=== PATIENT | male | born 1990 | race Caucasian/White ===

== ENCOUNTER 2016-08-04 22:36 | Emergency (ER) | payer OTHER ==
[~2016-08-04] VITALS: Ht 170.2 cm; Wt 63.8 kg
[2016-08-04 22:40] VITALS: TEMP 37.5; Ht 170.2 cm; Wt 63.8 kg
[2016-08-05] MEDS ORDERED: PROPARACAINE HCL 0.5% OP SOLN 15 ML BTL OP STA (00:01)
[2016-08-05] MEDS ORDERED: CIPROFLOXACIN HCL 0.3% OP SOLN 2.5 ML BTL OP ONE (00:45)
[2016-08-05] MEDS ORDERED: NORCO 5/325MG HOME PACK PO ONE (00:45)
[2016-08-05 00:46] VITALS: BP 108/88; PULSE 75; O2SAT 99
--- NOTE | 2016-08-06 14:35 | EMERGENCY ROOM VISIT NOTE ---
ED Visit Note First contact with patient: 23:59 Chief Complaint: Pinkeye and back pain. History of Present Illness: Mr. Ibrahim is a 26-year-old white male who ambulates into the ED accompanied by female friend complaining of bilateral eye pain and lumbar back pain. Currently patient reports that he has been having ongoing bilateral eye pressure sensations for the last 3-4 days. Historically he reports she wears contact lenses that are supposed to be changed every month but he has worn his previous contacts for 8 months and has never taken them out. He then reports he took them out 4 days ago and borrowed a set of contacts from his sister who is not the same prescription but reported that he was having blurry vision. He took out those contacts and put his 8 month old contacts back in because he could not afford to buy another set of contacts. Currently patient reports a bilateral pressure sensation in both eyes. He also reports he has a sandpaperlike discomfort in his eyes when he blinks. He rates this discomfort 6/10. His pain is nonradiating. He has not taken any medications for his pain prior to arrival at the hospital. Associated with his pain he reports she's been having a mild headache, "puslike" drainage from both eyes with more pronounced on the left than the right, tearing and mild light sensitivity. He denies any fevers, skin eruptions, skin color changes, recent direct trauma, decreased vision, floaters/beth/drawling curtains. Additionally he reports approximately 8 months ago he was seen and treated for an interruption of shingles over the lower back. He reports he was placed on antivirals and given pain medications and has had subsequently resolution of the rash but is still complaining of pain in the area of the shingles. He describes this pain as a prickly sensation. He rates this discomfort 6/10. His pain is nonradiating. He has not identified any aggravating or alleviating factors related to the pain. He has not taken any medication for this pain also since he ran out of his original narcotic prescription. He denies any skin eruptions, skin color changes, fevers, chills, sweats, recent repetitive or direct trauma, abdominal pain, genital paresthesias, bowel and bladder dysfunction, extremity weakness/numbness/tingling, diarrhea, constipation, urinary symptoms, hematuria. Review of Systems: As noted above in history of present illness. 8 body systems were reviewed and found to be negative as noted above. Past Medical History: As previously noted and unspecified knee. Current Medications: Patient denies. Allergies to Medications: Patient denies. Social History: Patient is currently employed; he feels safe in his home environment; he admits to tobacco and alcohol use. Physical Examination: Vital Signs: Date Time Temp Pulse Resp B/P Pulse Ox O2 Delivery O2 Flow Rate FiO2 08/05/16 00:46 75 18 108/88 99 08/04/16 22:40 37.5 92 18 141/71 96 Room Air GENERAL: 26-year-old male in mild distress due to symptoms, nontoxic-appearing, afebrile and hemodynamically stable. NEUROLOGICAL: Awake, alert and oriented to person, place and time. Answering questions appropriately and following commands. Normal gait. Good hand eye coordination. No focal motor sensory deficits. SKIN: Warm, dry and pink. No soft tissue eruptions or trauma noted. HEENT: Atraumatic and normocephalic. Eyes: PERRLA. EOMI without nystagmus. Sclera injected and conjunctiva erythematous; no active drainage was noted by yellowish crusty materials were noted in the medial canthus. No foreign bodies were noted under the eyelids are embedded in the cornea. The anterior chamber was clear. With staining and slit lamp examination patient shows some uptake scattered throughout the cornea with prominence over the lateral borders of the iris. Visual acuity without correction right 20/50 left 20/200. There is no erythema or edema over the donaldo-orbital area. Intraocular eye pressure: Right average 12.8/4 puffs, Left average 14.3/4 puffs. BACK: Mild tenderness over the bony L2-L3 spine and the associated paraspinous areas bilaterally. This area is not erythematous or edematous and there are no lesions consistent with shingles. Full range of motion of the lumbar spine. No CVA tenderness. Negative straight leg raise test. THORAX: Lungs sounds are clear to auscultation and equal bilaterally with symmetrical chest wall. ABDOMEN: Flat, soft and nontender. Positive bowel sounds in all quadrants. No guarding, rigidity or organomegaly. LOWER EXTREMITIES: 5/5 muscle strength in all movements of the hips, knees, ankles and feet. 2+ patellar and Achilles deep tendon reflexes intact and equal bilaterally. The feet were warm and pink and capillary refill is brisk. Distal pulses were intact. ED Course: Patient is assessed as noted above. Alcaine was used to anesthetize the eyes for examination. 2 drops of Ciloxan ophthalmic solution was placed in both eyes. Patient was educated about tonight's findings and instructed on his treatment plan; he verbalized understanding and agreement with this plan. Clinical Impression: Superficial punctate keratitis bilaterally. Lumbar back pain; possible post herpetic neuralgia. Disposition: Patient discharged home in stable condition accompanied by his sister; prior to departure he was reassessed and subjectively reported most of the discomfort in his eyes and clearly resolved but still complained of 6/10 back pain. Plan: Patient was encouraged to throw away his contacts and not to use any contacts with the next 10 days. Patient was placed on a sliding pain scale of ibuprofen, acetaminophen and [place] ; appropriate narcotic precautions were discussed with the patient. Patient was encouraged use 2 drops of Cortisporin otic suspension in both eyes every 4 hours while awake for 5 days. Patient was encouraged to follow-up with Dr. Holland, [facility] for specialty care and treatment. Patient was told that the narcotics that would help the discomfort in his eye would also help with the discomfort in his back and that he should follow-up with his PCP for recheck. Patient was encouraged return the ED for worsening/uncontrolled pain, visual changes, fevers, abdominal pain or any new/concerning symptoms.
== END 2016-08-05 00:46 | disposition home or self-care (01) ==
LOC: C.EDB 22:38 → C.EDD 08-05 00:46
DX: H16.8 Other keratitis (principal); M54.5 Low back pain; F17.200 Nicotine dependence, unspecified, uncomplicated

== ENCOUNTER → 2016-09-12 | Outpatient (CLI) | payer OTHER | END | disposition home or self-care (01) | LOC: C.LAB 15:36 | DX: Z02.83 Encounter for blood-alcohol and blood-drug test (principal) ==